=== PATIENT | male | born 1980 | race Caucasian/White ===

== ENCOUNTER → 2020-09-12 | Day surgery (SDC) | payer BC ==
--- NOTE | 2020-09-11 18:29 | Pre-Procedure Note/Attestation ---
Pre-Procedure Note/Attestation Complete Prior to Procedure Planned Procedure: bilateral Procedure Narrative: 1. Septoplasty 2. Submucous resection bilateral inferior turbinates Indications for Procedure Pre-Operative Diagnosis: 1. Nasal septal deviation. 2. Hypertrophied bilateral inferior turbinates. Attestation I attest that I discussed the nature of the procedure; its benefits; risks and complications; and alternatives (and the risks and benefits of such alternatives), prior to the procedure, with the patient (or the patient's legal sales representative [employer]). I attest that, if there was a reasonable possibility of needing a blood transfusion, the patient (or the patient's legal sales representative [employer]) was given the [facility] standardized written summary, pursuant to the [place] Blood Safety Act ([place] Health and Safety Code # 1645, as amended). I attest that I re-evaluated the patient just prior to the surgery and that there has been no change in the patient's H&P done by his PMD and reviewed and approved by me. Kwadwo Stack MD Sep 11, 2020 18:29
--- NOTE | 2020-09-11 18:30 | Brief Operative Note ---
Immediate Post Operative Note Operative Note Chief Complaint: Nasal airway obstruction Pre-op Diagnosis: 1. Nasal septal deviation. 2. Hypertrophied bilateral inferior turbinates. Procedure: 1. Septoplasty 2. Submucous resection bilateral inferior turbinates Post-op Diagnosis: same as pre-op Surgeon: Kwadwo Stack MD Joy Loading Machine Operator: none Additional Surgeons: none Anesthesiologist: Taylor SARAVIA Anesthesia: general Specimen: none Complications: none Condition: stable Fluids: D5LR Estimated Blood Loss: volume - 50 cc Drains: none Packing: SinoNasal gel Tourniquet time: 0 Implant(s) used?: No Kwadwo Stack MD Sep 11, 2020 18:30
--- NOTE | 2020-09-11 18:35 | Discharge Instructions ---
Discharge Instructions Discharge Instructions Follow up with: Dr. Stack's office 09/19/2020 2:15 pm Diet: regular Resume Normal Activity?: No Activity: light activity Pneumonia Vaccine: pt refused vaccine Influenza Vaccine (Jun to Nov): pt refused vaccine Follow Up Orders Pt has printed post op instructions which were reviewed with him and then given to him during his pre op visit 09/06/2021 Ice to face x 48 hours. Return to Work/School on: Sep 26, 2020 For Surgical Patients Dressing Care: may change May shower: No For Congestive Heart Failure Reminder Report to your physician any weight gain of 5 pounds or more in one week. Kwadwo Stack MD Sep 11, 2020 18:35
[~2020-09-12] VITALS: Ht 188 cm; Wt 136.1 kg
[2020-09-12] VITALS (10 sets, daily range): BP systolic 126–157; BP diastolic 88–104
[~2020-09-12] MED LIST: AMOXICILLIN500 MG ORAL; Bupivacaine 0.5% Inj 30 ml vial INJ ONE; Cocaine HCl 4% 4ml vial TOPIC ONE; DiphenhydrAMINE 50mg/ml Inj IVP PRN; HYDROcodone/Acetamin 5/325 tab ORAL PRN; HYDROmorphone 1mg/ml Carpuject SUBQ PRN; Ketorolac 30mg Inj IV PRN; LR 1000ml 1,000 ML IVLG SCH; LR 1000ml ONE; Lidocaine 1% MPF 10mg/ml 5ml ONE; Lidocaine 1%/ 10mg/ml/EPI 0.01mg/ml 20ml INJ ONE; Meperidine 25mg/1ml Inj (FOR RIGORS ONLY) IV PRN; Metoclopramide 10mg/2ml Inj IVP PRN; Midazolam 2mg/2ml Inj ONE; NORCO 5-325 TA1 EAC1 ORAL; NS Irrig 1000ml ONE; PROTONIX40 MG ORAL; Sterile Water Irrig 1000ml IRRIG ONE; ceFAZolin sod 1 GM in D5W 55 ML IV ONE; fentaNYL 100 mcg/2 mL IV ONE
--- NOTE | 2020-09-12 07:24 | Anethesia Preoperative Eval ---
Anesthesia Pre-op PMH/ROS General Date of Evaluation: Sep 12, 2020 Time of Evaluation: 07:20 Anesthesiologist: Tito ASA Score: ASA 2 Mallampati Score Class I : Soft palate, uvula, fauces, pillars visible Class II: Soft palate, uvula, fauces visible Class III: Soft palate, base of uvula visible Class IV: Only hard plate visible Mallampati Classification: Class III Surgeon: Sreekanth Diagnosis: Nasal septum deviaton Surgical Procedure: Septoplasty Anesthesia History: none Family History: no anesthesia problems Allergies: Coded Allergies: No Known Allergies (Unverified , 09/12/20) Medications: see eMAR Patient NPO?: Yes Past Medical History Cardiovascular: Denies: HTN, CAD, NE, valve dz, arrhythmia, other Pulmonary: Reports: PARK; Denies: asthma, COPD, other Gastrointestinal/Genitourinary: Reports: GERD; Denies: CRI, ESRD, other Neurologic/Psychiatric: Denies: dementia, CVA, depression/anxiety, TIA, other Endocrine: Denies: DM, hypothyroidism, steroids, other HEENT: Denies: cataract (L), cataract (R), glaucoma, NENANA (L), NENANA (R), other Hematology/Immune: Denies: anemia, DVT, bleeding disorder, other Musculoskeletal/Integumentary: Denies: OA, RA, DJD, DDD, edema, other Other: obesity PMH Narrative: as above PSxH Narrative: see H&P Anesthesia Pre-op Phys. Exam Physician Exam Last Vital Signs Date Time Temp Pulse Resp B/P (MAP) Pulse Ox O2 Delivery O2 Flow Rate FiO2 09/12/20 06:02 Room Air 09/12/20 06:01 97.0 79 18 126/88 96 Constitutional: NAD Neurologic: CN 2-12 intact Cardiovascular: RRR, no M/R/G Respiratory: CTA Gastrointestinal: other - obesity Airway Exam Mallampati Score: Class III MO: full Neck: short ROM: limited Teeth: intact Dentures: no upper, no lower Anesthesia Pre-op A/P Labs see chart Studies Pre-op Studies: EKG - SR Risk Assessment & Plan Assessment: ASA 2 Plan: GA with LMA Status Change Before Surgery: No Pre-Antibiotics Drug: Ancef 2gr Given Within 1 Hr of Incision: Yes Time Given: 07:56 Tristen Flores MD Sep 12, 2020 07:24
--- NOTE | 2020-09-12 08:31 | Immediate Post-Op Evaluation ---
Immediate Post-Op Evalulation Immediate Post-Op Evalulation Procedure: Septoplasty, bilateral turbinate ablasion Date of Evaluation: Sep 12, 2020 Time of Evaluation: 08:30 IV Fluids: 800 Blood Products: none Estimated Blood Loss: 50 Urinary Output: none Blood Pressure Systolic: 146 Blood Pressure Diastolic: 90 Pulse Rate: 82 Respiratory Rate: 20 O2 Sat by Pulse Oximetry: 99 Temperature (Fahrenheit): 97.6 Pain Score (1-10): 1 Nausea: No Vomiting: No Complications none Patient Status: reacts, patent, none Hydration Status: adequate Tristen Flores MD Sep 12, 2020 08:31
--- NOTE | 2020-09-12 09:22 | 48 Hour Post Anesthesia Eval ---
Post Anesthesia Evaluation Procedure: Septoplasty, bilateral turbinate ablasion Date of Evaluation: Sep 12, 2020 Time of Evaluation: 09:21 Blood Pressure Systolic: 142 0: 78 Pulse Rate: 72 Respiratory Rate: 18 Temperature (Fahrenheit): 97.6 O2 Sat by Pulse Oximetry: 98 Airway: patent Nausea: No Vomiting: No Pain Intensity: 2 Hydration Status: adequate Cardiopulmonary Status: stable Mental Status/LOC: patient returned to baseline Follow-up Care/Observations: n/a Post-Anesthesia Complications: none Follow-up care needed: ready to discharge Tristen Flores MD Sep 12, 2020 09:22
--- NOTE | 2020-09-12 09:30 | Operative Note - Dictated ---
DATE OF OPERATION: 09/12/2020 SURGEON: Kwadwo Stack MD GROCERY STOCK CLERK: None. ANESTHESIOLOGIST: Tristen Flores MD ANESTHESIA TYPE: LMA general as well as 4 mL of 4% topical cocaine on 4 pledgets, accounted for at the end of the case. Additionally, 8 mL 1% lidocaine, 1000 epinephrine, Marcaine 0.5%, 1:200,000 epinephrine injected into the nasal mucosa in the inferior turbinate bilaterally. PROCEDURE: 1. Septoplasty. 2. Submucous resection right inferior turbinate. 3. Submucous resection left inferior turbinate. PREOPERATIVE DIAGNOSIS: Nasal airway obstruction secondary to septal deviation and hypertrophied right and left inferior turbinates. POSTOPERATIVE DIAGNOSIS: Nasal airway obstruction secondary to septal deviation and hypertrophied right and left inferior turbinates. FINDINGS: Nasal airway obstruction secondary to septal deviation and hypertrophied right and left inferior turbinates. TECHNIQUE: Patient prepped and draped in the usual manner via LMA general anesthesia. Time-out was performed. All agreed to the procedures and equipment required. I then proceeded to make an incision in the anterior aspect of the right inferior turbinate. A radiofrequency wand after coating with saline gel was placed at a setting of 6 for 10 seconds x2 in the inferior turbinate on the right. I then outfractured with a Boies elevator. I approached the left inferior turbinate. Incision in the anterior inferior aspect. Radiofrequency wand placed after coating with saline gel. Passed 2 times 10 seconds each time setting of 6. I then outfractured the inferior turbinate on the left. I next addressed the septal deviation to the left. I made a Quentin incision with a 15 blade. I elevated with a dental elevator subperiosteally and subperichondrially on either side. I then removed the lower 4 mm of these quadrilateral cartilage and removed with a Carmen. I did leave a 1 cm inferiorly to maintain structure. I then was able to fracture the vomer back to the midline with a Boies elevator. I then sewed the incision shut with a 4-0 plain suture x1 single stitch. Nose was suctioned dry. I then placed 1 syringe of sinonasal gel 40% on the right 60% on the left approximately. Mustache dressing was placed. ESTIMATED BLOOD LOSS: 50. COMPLICATIONS: None. DRAINS: None. Patient awake and alert, and stable in the operating room and the recovery room 10 minutes later. I will be sending him home. Kwadwo Stack M.D. DR: NASRIN JOB#: [id number] CC: BESSIE
== END | disposition home or self-care (01) ==
LOC: SUR 05:39
DX: J34.89 Other specified disorders of nose and nasal sinuses (principal); J34.2 Deviated nasal septum; J34.3 Hypertrophy of nasal turbinates; G47.33 Obstructive sleep apnea (adult) (pediatric); K21.9 Gastro-esophageal reflux disease without esophagitis; E66.9 Obesity, unspecified; Z68.38 Body mass index [BMI] 38.0-38.9, adult
CPT/HCPCS: 30140; 30520; 94003; C9046; J0690; J1100; J2250; J2704; J3010; J3490; J7120; U0002; 94150